=== PATIENT | male | born 1955 | race Caucasian/White ===

== ENCOUNTER 2017-08-17 08:48 | Emergency (ER) | payer OTHER ==
[~2017-08-17] VITALS: Ht 170.2 cm; Wt 76.0 kg
[2017-08-17] MEDS ORDERED: MORPHINE SULFATE 10 MG/ML CPJ IM ONE (10:45)
[2017-08-17] MEDS ORDERED: ONDANSETRON 4MG ODT PO ONE (10:45)
[2017-08-17 11:28] VITALS: BP 117/77
== END 2017-08-17 11:44 | disposition home or self-care (01) ==
LOC: ER 08:48
DX: M54.40 Lumbago with sciatica, unspecified side (principal); G89.29 Other chronic pain; Z98.890 Other specified postprocedural states; R03.0 Elevated blood-pressure reading, without diagnosis of hypertension; Z95.2 Presence of prosthetic heart valve
CPT/HCPCS: 96372; 99283; J2270; Q0162

== ENCOUNTER 2017-08-19 03:21 | Emergency (ER) | payer OTHER ==
[~2017-08-19] VITALS: Ht 170.2 cm; Wt 75.0 kg
[2017-08-19] MEDS ORDERED: HYDROCODONE/ACETAMINOPHEN 5/325MG TABLET PO ONE (09:00)
[2017-08-19 09:15] VITALS: BP 135/90
== END 2017-08-19 09:21 | disposition home or self-care (01) ==
LOC: ER 03:22
DX: M54.5 Low back pain (principal); G89.29 Other chronic pain; E78.00 Pure hypercholesterolemia, unspecified; I51.9 Heart disease, unspecified
CPT/HCPCS: 99285

== ENCOUNTER 2019-03-21 10:47 | Emergency (ER) | payer MEDICARE, OTHER ==
[~2019-03-21] VITALS: Ht 172.7 cm; Wt 65.0 kg
[2019-03-21] MEDS ORDERED: HYDROCODONE/ACETAMINOPHEN 5/325MG TABLET PO ONE (16:15)
[2019-03-21 16:57] VITALS: BP 139/75
== END 2019-03-21 17:00 | disposition home or self-care (01) ==
LOC: ER 10:47
DX: M54.32 Sciatica, left side (principal)
CPT/HCPCS: 99283